=== PATIENT | female | born 1995 | race Caucasian/White ===

== ENCOUNTER 2021-09-18 00:05 | Inpatient (IN) ==
[2021-09-17] MEDS: Ringers Solution, Lactated 1,000 ML IVC SCH (20:14)
[2021-09-17 20:23] LABS: Basophils # 0.1 K/mcL (0.0-0.2); Basophils % 0.6 %; Eosinophils # 0.1 K/mcL (0.0-0.6); Eosinophils % 0.9 %; Hemoglobin 13.6 g/dL (11.5-15.4); Immature Granulocytes % 1.3 % (0-4); Lymphocytes # 2.4 K/mcL (0.6-4.6); Lymphocytes % 22.5 %; Mean Corpuscular HGB Conc 33.2 g/dL (31.6-35.5); Mean Corpuscular Hemoglobin 29.1 pg (28.0-33.3); Mean Corpuscular Volume 87.6 fL (83.0-100.0); Mean Platelet Volume 11.3 fL (9.4-12.4); Monocytes # 0.7 K/mcL (0.0-1.3); Monocytes % 6.2 %; Neutrophils # 7.2 K/mcL (1.6-8.9); Platelet Count 161 K/mcL (140-400); Red Blood Count 4.68 M/mcL (3.82-4.97); Red Cell Distribution Width 13.4 % (11.5-14.5); Segmented Neutrophils % 68.5 %; White Blood Count 10.6 K/mcL (4.3-11.1)
[2021-09-17 20:52] LABS: Influenza A PCR Negative (Negative); Influenza B PCR Negative (Negative); Resp. Syncytial Virus PCR Negative (Negative)
[2021-09-17 20:58] LABS: SARS-CoV-2 by PCR (In House) Positive (Negative)
[2021-09-17 21:08] LABS: Amphetamine Screen,Urine Negative ng/mL (Cutoff=1000); Barbiturate Screen,Urine Negative ng/mL (Cutoff=200); Benzodiazepines Screen,Urine Negative ng/mL (Cutoff=200); Cannabinoid Screen,Urine Negative ng/mL (Cutoff = 50); Cocaine Screen,Urine Negative ng/mL (Cutoff= 300); Opiate Screen,Urine Negative ng/mL (Cutoff=300); Phencyclidine Screen,Urine Negative ng/mL (Cutoff=25)
[~2021-09-18 00:05] MED LIST: *HR* FentaNYL (PF) 100 MCG/2 ML VIAL EP ONE; *HR* FentaNYL (PF) 100 MCG/2 ML VIAL ONE; *HR* Nalbuphine 10 MG/ML AMPUL IV PRN; Azithromycin 500 MG in 0.9 % Sodium Chloride 250 ML IVPB PRN; EPHEDrine 50 MG/ML VIAL IVP PRN; Epidural Premix (fent/bupiv) 110 ML EP ONE; Epidural Premix (fent/bupiv) 110 ML EP SCH; Famotidine 20 MG/2 ML VIAL IVP PRN; Lidocaine 1% 20 ML MDV INFILT PRN; Metoclopramide 10 MG/2 ML VIAL IVP PRN; Naloxone 0.4 MG/ML INJ IVP PRN; Ondansetron 4 MG/2 ML VIAL IVP PRN; Penicillin G Potassium 2,500,000 UNIT/105 ML MLS IVPB SCH; Penicillin G Potassium 5,000,000 UNIT in 0.9 % Sodium Chloride Mini Bag 100 ML IVPB ONE; Ropivacaine/PF 0.2% 20 ML VIAL EP ONE; Ropivacaine/PF 0.2% 20 ML VIAL ONE
[2021-09-18] MEDS: Ringers Solution, Lactated 1,000 ML IVC SCH (00:24)
[2021-09-18] MEDS ORDERED: Oxytocin 20 units/ LR 1000 mL 20 UNIT/1,000 ML BAG IVC SCH ×2 (01:30→05:54)
[2021-09-18] MEDS ORDERED: Ondansetron ODT 4 MG TAB.RAPDIS SL PRN (05:54)
[2021-09-18] MEDS ORDERED: Lanolin 7 G OINT...G. TP PRN (05:54)
[2021-09-18] MEDS ORDERED: Benzocaine/Menthol 56 GM AEROSOL SPRAY TP PRN (05:54)
[2021-09-18] MEDS ORDERED: Rho Immune Globulin 1,500 UNIT SYRINGE IM PRN (05:54)
[2021-09-18 06:36] VITALS: O2SAT 98
[2021-09-18] MEDS: Prenatal Vit/FA 1 EACH TABLET PO SCH (08:37)
[2021-09-18] MEDS: Ibuprofen 600 MG TABLET PO SCH ×3 (08:37→20:47)
[2021-09-18] MEDS: Acetaminophen 325 MG TABLET PO SCH ×3 (08:38→20:47)
[2021-09-18 15:35] VITALS: PULSE 80
[2021-09-19 00:25] VITALS: BP 127/66; TEMP 97.9
[2021-09-19] MEDS: Ibuprofen 600 MG TABLET PO SCH ×2 (01:43→07:46)
[2021-09-19] MEDS: Acetaminophen 325 MG TABLET PO SCH ×2 (01:43→07:46)
[2021-09-19 04:18] LABS: Basophils % 0.5 %; Eosinophils # 0.2 K/mcL (0.0-0.6); Eosinophils % 1.8 %; Hematocrit 35.7 % (35.3-44.9); Immature Granulocytes % 1.5 % (0-4); Lymphocytes # 2.1 K/mcL (0.6-4.6); Lymphocytes % 25.7 %; Mean Corpuscular HGB Conc 32.8 g/dL (31.6-35.5); Mean Corpuscular Hemoglobin 29.1 pg (28.0-33.3); Mean Corpuscular Volume 88.8 fL (83.0-100.0); Mean Platelet Volume 11.2 fL (9.4-12.4); Monocytes # 0.4 K/mcL (0.0-1.3); Monocytes % 5.3 %; Neutrophils # 5.3 K/mcL (1.6-8.9); Platelet Count 114 K/mcL (140-400); Red Blood Count 4.02 M/mcL (3.82-4.97); Red Cell Distribution Width 13.5 % (11.5-14.5); Segmented Neutrophils % 65.2 %; White Blood Count 8.1 K/mcL (4.3-11.1)
[2021-09-19 04:20] LABS: Hemoglobin 11.7 g/dL (11.5-15.4)
[2021-09-19] MEDS: Prenatal Vit/FA 1 EACH TABLET PO SCH (07:46)
== END 2021-09-19 10:45 | disposition home or self-care (01) | DRG 805 ==
LOC: 1NENULAB → 1NENUOBS 06:25
PROVIDERS: ADMIT Obstetrics & Gynecology; ATTEND Obstetrics & Gynecology